=== PATIENT | male | born 1945 | race Hispanic/Latino ===

== ENCOUNTER 2020-02-16 15:59 | Inpatient (IN) | payer MEDICARE ==
[~2020-02-16] VITALS: Ht 172.7 cm; Wt 67.1 kg
[2020-02-16] MEDS ORDERED: SODIUM CHLORIDE 0.9% 1000ML 1,000 ML IV ONE ×3 (16:36→19:37)
[2020-02-16 16:44] LABS: BASOPHILS % (AUTO) 0.1 % (0.0-5.0); EOSINOPHILS % (AUTO) 0.2 % (0.0-8.0); HEMATOCRIT 33.6 % (42-54); LYMPHOCYTES % (AUTO) 7.4 % (21.0-51.0); MEAN CORPUSCULAR HEMOGLOBIN 28.8 pg (27.0-33.0); MEAN CORPUSCULAR HGB CONC 33.6 g/dL (32.0-36.0); MEAN CORPUSCULAR VOLUME 85.5 fL (79-99); MONOCYTES % (AUTO) 6.9 % (3.0-13.0); NEUTROPHILS % (AUTO) 84.9 % (40.0-77.0); PLATELET COUNT (AUTO) 290 K/uL (130-400); RED BLOOD CELL COUNT(AUTO) 3.93 MIL/uL (4.50-6.20); RED CELL DISTRIBUTION WIDTH 12.2 % (11.0-15.5); WHITE BLOOD COUNT (AUTO) 9.7 K/uL (4.8-10.8)
[2020-02-16 16:57] LABS: INR 1.03 (0.85-1.15); PARTIAL THROMBOPLASTIN TIME 34.1 SEC (26.3-35.5); PROTHROMBIN TIME 11.1 SEC (9.6-11.6)
[2020-02-16 17:10] LABS: AMMONIA 36 umol/L (11-32)
[2020-02-16 17:14] LABS: ALCOHOL, BLOOD < 3 mg/dL (0-10); CREATINE KINASE, TOTAL 927 U/L (21-232)
[2020-02-16 18:58] LABS: ALBUMIN 2.7 g/dL (3.5-5.0); BILIRUBIN,TOTAL 0.5 mg/dL (0.2-1.0); CREATININE 1.2 mg/dL (0.5-1.5); TOTAL PROTEIN, SERUM 7.4 g/dL (6.0-8.3)
[2020-02-16 18:58] LABS: APPEARANCE,URINE Cloudy (CLEAR); BILIRUBIN,URINE Negative (NEGATIVE); COLOR,URINE Yellow (YELLOW); GLUCOSE, URINE (UA) Negative (NEGATIVE); KETONES,URINE Negative (NEGATIVE); LEUKOCYTE ESTERASE ,URINE Large (NEGATIVE); NITRATE,URINE Negative (NEGATIVE); OCCULT BLOOD,URINE Negative (NEGATIVE); PROTEIN,URINE Negative (NEGATIVE)
[2020-02-16 19:01] LABS: POTASSIUM 2.8 mmol/L (3.5-5.1)
[2020-02-16 19:08] LABS: BACTERIA,URINE Rare /HPF (None Seen); RBC,URINE 0-1 /HPF (0-1)
[2020-02-16 19:09] LABS: AMPHET/METH SCREEN,URINE NEGATIVE (NEGATIVE); BARBITURATE SCREEN, URINE NEGATIVE (NEGATIVE); BENZODIAZEPINES SCREEN,URINE NEGATIVE (NEGATIVE); CANNABINOID SCREEN,URINE NEGATIVE (NEGATIVE); COCAINE SCREEN,URINE NEGATIVE (NEGATIVE); OPIATE SCREEN,URINE POSITIVE (NEGATIVE); PHENCYCLIDINE SCREEN,URINE NEGATIVE (NEGATIVE); SQUAMOUS EPITHELIAL CELL,UR Few /HPF (0-2)
[2020-02-16] MEDS ORDERED: POTASSIUM BICARB/CIT AC 25 MEQ TABLET.EFF ONE (19:12)
[2020-02-16] MEDS ORDERED: HALOPERIDOL LACTATE 5 MG/ML VIAL ONE (19:33)
[2020-02-16] MEDS ORDERED: CEFTRIAXONE SODIUM 1 GM ONE (19:37)
[2020-02-16 20:00] VITALS: BP 116/69
[2020-02-16] MEDS: SODIUM CHLORIDE 0.9% 1000ML 1,000 ML IV SCH (20:18)
[2020-02-16] MEDS ORDERED: MORPHINE SULFATE 4 MG/1ML SYG ONE (20:29)
[2020-02-16] MEDS ORDERED: ACETAMINOPHEN 325 MG TAB PO PRN ×2 (20:30)
[2020-02-16] MEDS ORDERED: LIDOCAINE HCL-MPF 1% 2ML VIAL IV PRN (20:30)
[2020-02-16] MEDS ORDERED: CEFTRIAXONE SODIUM 1 GM IV SCH (20:30)
[2020-02-16] MEDS ORDERED: POTASSIUM CHLORIDE 10% ELIXIR 20 MEQ/15 ML UDCUP PO PRN (20:30)
[2020-02-16] MEDS ORDERED: POTASSIUM CHLORIDE 20MEQ/100ML 100 ML IV PRN (20:30)
[2020-02-16] MEDS ORDERED: LACTULOSE 20 GM/30 ML UDCUP PO PRN (20:30)
[2020-02-16] MEDS ORDERED: IPRATROPIUM/ALBUTEROL SULFATE 3 ML SOLUTION IH PRN (20:30)
[2020-02-16] MEDS ORDERED: MORPHINE SULFATE 2 MG/ML 1ML SYG IV PRN (20:30)
[2020-02-16] MEDS ORDERED: ONDANSETRON HCL 4 MG/2 ML VIAL IV PRN (20:30)
[2020-02-16] MEDS ORDERED: POTASSIUM CHLORIDE 10MEQ/100ML 100 ML IV ONE (21:03)
[2020-02-16] MEDS ORDERED: LIDOCAINE HCL-MPF 1% 2ML VIAL ONE (21:03)
[2020-02-16] MEDS ORDERED: LEVO500T89 PO (23:23)
[2020-02-16] MEDS ORDERED: QUET50TA55 PO (23:23)
[2020-02-16] MEDS ORDERED: DONE10TA43 PO (23:23)
[2020-02-16] MEDS ORDERED: CHERATUSSIN AC PO (23:27)
[2020-02-16] MEDS ORDERED: TAMS-1 PO (23:27)
[2020-02-16] MEDS ORDERED: OSEL75CA17 PO (23:31)
[2020-02-16 23:59] VITALS: BP 113/58
[2020-02-17 04:30] VITALS: BP 121/67
[2020-02-17] MEDS: SODIUM CHLORIDE 0.9% 1000ML 1,000 ML IV SCH ×2 (04:55→16:40)
[2020-02-17 07:18] LABS: POTASSIUM 3.1 mmol/L (3.5-5.1)
[2020-02-17 08:00] VITALS: BP 121/60
[2020-02-17] MEDS: ENOXAPARIN SODIUM 40 MG/0.4 ML SYRINGE SQ SCH (08:34)
[2020-02-17] MEDS: FAMOTIDINE 20MG TAB 20 MG TAB PO SCH (08:35)
[2020-02-17 11:00] VITALS: BP 102/69
[2020-02-17] MEDS: CEFTRIAXONE SODIUM 1 GM IV SCH (13:21)
[2020-02-17 16:00] VITALS: BP 118/75
--- NOTE | 2020-02-17 17:26 | NUR ---
D/C PLAN Pt with AMS. CM spoke to daughter Kristin Figueroa on facesheet. States pt lives with spouse. Daughter reports she live next to patient and assists in care as needed. Denies having any home health, provider services, or DME. [facility] family also assists with transportation as needed. Agreeable to short term snf/rehab if needed. Plan to home. CM to f/u. Addendum: 02/17/20 at 1728 by ANKIT EDDY CM Amended: Links added.
[2020-02-17] MEDS: POTASSIUM CHLORIDE 20 MEQ ERTAB PO PRN ×2 (18:21→19:57)
[2020-02-17 20:00] VITALS: BP 146/90
[2020-02-18] VITALS (7 sets, daily range): BP systolic 107–154; BP diastolic 56–92
[2020-02-18] MEDS: SODIUM CHLORIDE 0.9% 1000ML 1,000 ML IV SCH (02:01)
[2020-02-18] MEDS: CEFTRIAXONE SODIUM 1 GM IV SCH ×2 (02:19→13:54)
[2020-02-18] MEDS: FAMOTIDINE 20MG TAB 20 MG TAB PO SCH (09:00)
[2020-02-18] MEDS ORDERED: DOCUSATE SODIUM 100 MG CAP PO PRN (09:30)
[2020-02-18] MEDS: POTASSIUM CHLORIDE 20 MEQ ERTAB PO PRN ×4 (09:56→21:15)
[2020-02-18] MEDS: ENOXAPARIN SODIUM 40 MG/0.4 ML SYRINGE SQ SCH (10:05)
[2020-02-18] MEDS: INSULIN HUMULIN R 100 UNIT/ML 3ML SQ SCH ×3 (11:30→21:00)
[2020-02-18] MEDS: QUETIAPINE FUMARATE 25 MG TAB PO SCH (13:54)
[2020-02-18] MEDS: TAMSULOSIN HCL 0.4 MG CAP.ER.24H PO SCH (21:14)
--- NOTE | 2020-02-18 23:55 | NUR ---
POTASSIUM: 3.1 Informed on-call Vonda Hurtado NP with an order to give Potassium 40mEQ po now and place pt. on potassium po protocol. Addendum: 02/19/20 at 0008 by JONO MILES RN RN WRONG PATIENT
[2020-02-19] MEDS: CEFTRIAXONE SODIUM 1 GM IV SCH ×2 (02:24→14:34)
[2020-02-19 03:05] VITALS: BP 124/68
[2020-02-19 05:10] LABS: HEMATOCRIT 35.8 % (42-54); MEAN CORPUSCULAR HEMOGLOBIN 29.7 pg (27.0-33.0); MEAN CORPUSCULAR VOLUME 90.2 fL (79-99); PLATELET COUNT (AUTO) 325 K/uL (130-400); RED BLOOD CELL COUNT(AUTO) 3.97 MIL/uL (4.50-6.20); RED CELL DISTRIBUTION WIDTH 12.7 % (11.0-15.5); WHITE BLOOD COUNT (AUTO) 5.8 K/uL (4.8-10.8)
[2020-02-19] MEDS: INSULIN HUMULIN R 100 UNIT/ML 3ML SQ SCH ×3 (05:23→19:58)
[2020-02-19 05:31] LABS: CREATININE 0.7 mg/dL (0.5-1.5); POTASSIUM 3.9 mmol/L (3.5-5.1)
[2020-02-19 08:00] VITALS: BP 135/80
[2020-02-19] MEDS: DEXTROSE 5 %-0.45 % NACL 1,000 ML IV SCH ×2 (08:00→20:33)
[2020-02-19] MEDS: FAMOTIDINE 20MG TAB 20 MG TAB PO SCH (09:00)
[2020-02-19] MEDS: QUETIAPINE FUMARATE 25 MG TAB PO SCH (10:45)
[2020-02-19] MEDS: DONEPEZIL HCL 5 MG TAB PO SCH (10:45)
[2020-02-19] MEDS: ENOXAPARIN SODIUM 40 MG/0.4 ML SYRINGE SQ SCH (10:46)
[2020-02-19 11:37] VITALS: BP 116/70
[2020-02-19 16:00] VITALS: BP 102/57
[2020-02-19 19:00] VITALS: BP 135/75
[2020-02-19] MEDS: TAMSULOSIN HCL 0.4 MG CAP.ER.24H PO SCH (20:34)
[2020-02-19] MEDS: GUAIFENESIN-DM 200/20 MG 10 ML PO PRN (22:44)
[2020-02-19 23:00] VITALS: BP 117/71
[2020-02-20] MEDS: CEFTRIAXONE SODIUM 1 GM IV SCH (02:14)
[2020-02-20 03:00] VITALS: BP 115/66
[2020-02-20 04:27] LABS: MEAN CORPUSCULAR HGB CONC 33.2 g/dL (32.0-36.0); MEAN CORPUSCULAR VOLUME 90.2 fL (79-99); PLATELET COUNT (AUTO) 319 K/uL (130-400); RED BLOOD CELL COUNT(AUTO) 3.77 MIL/uL (4.50-6.20); RED CELL DISTRIBUTION WIDTH 12.8 % (11.0-15.5); WHITE BLOOD COUNT (AUTO) 5.4 K/uL (4.8-10.8)
[2020-02-20 04:47] LABS: CREATININE 0.8 mg/dL (0.5-1.5); POTASSIUM 3.3 mmol/L (3.5-5.1)
[2020-02-20] MEDS: INSULIN HUMULIN R 100 UNIT/ML 3ML SQ SCH ×2 (05:30→11:30)
[2020-02-20] MEDS: POTASSIUM CHLORIDE 20 MEQ ERTAB PO PRN ×3 (05:31→12:12)
[2020-02-20 08:00] VITALS: BP 104/51
[2020-02-20] MEDS: QUETIAPINE FUMARATE 25 MG TAB PO SCH (09:27)
[2020-02-20] MEDS: DONEPEZIL HCL 5 MG TAB PO SCH (09:27)
[2020-02-20] MEDS: FAMOTIDINE 20MG TAB 20 MG TAB PO SCH (09:28)
[2020-02-20] MEDS: GUAIFENESIN-DM 200/20 MG 10 ML PO PRN (09:31)
[2020-02-20] MEDS: ENOXAPARIN SODIUM 40 MG/0.4 ML SYRINGE SQ SCH (09:31)
[2020-02-20 11:32] VITALS: BP 109/62
== END 2020-02-20 14:50 | disposition home or self-care (01) | DRG 689 ==
LOC: EDH 15:59 → 3CH 20:18
PROVIDERS: ADMIT Family Medicine; ATTEND Family Medicine
DX: N39.0 Urinary tract infection, site not specified (principal); G93.41 Metabolic encephalopathy; M62.82 Rhabdomyolysis; E87.6 Hypokalemia; E86.0 Dehydration; I10 Essential (primary) hypertension; E11.9 Type 2 diabetes mellitus without complications; F03.90 Unspecified dementia, unspecified severity, without behavioral disturbance, psychotic disturbance, mood disturbance, and anxiety; Z87.891 Personal history of nicotine dependence; Z85.51 Personal history of malignant neoplasm of bladder; Z83.3 Family history of diabetes mellitus
CPT/HCPCS: 36415; 71045; 80048; 80053; 80305; 81001; 82140; 82550; 82948; 83605; 83735; 83874; 84132; 84145; 84484; 85025; 85027; 85610; 85730; 87040; 87088; 87633; 87804; 93005; G0378; G0480; J0696; J1630; J1650; J2270; J3480; J3490; J7030; J7042